=== PATIENT | male | born 1960 | race Caucasian/White ===

== ENCOUNTER 2019-12-09 01:54 | Inpatient (IN) | payer MEDICAID, OTHER ==
[~2019-12-09] VITALS: Ht 175.3 cm; Wt 51.3 kg
[~2019-12-09 01:54] MED LIST: ALBU18HF2 IH; ALBU90AE INH; ALIR75PE SQ; ATOR-2 PO; CHOL40002 MT; DARU1TAB MT; DOLU50TA PO; EMTR1TAB12 PO; GABA-531 MT; GABA-531 PO; LIP40 PO; LOPHC5 PO; PRAS10TA6 MT; PRAS10TA6 PO; PROC25SU2 RC; [UNRECOGNIZED DRUG - CODE] MT
[2019-12-09] MEDS ORDERED: ONDANSETRON HCL 4MG/2ML INJ IV STA (02:11)
[2019-12-09] MEDS ORDERED: CEFTRIAXONE 1 G PREMIX 50 ML IV ONE (02:15)
[2019-12-09] MEDS ORDERED: SODIUM CHLORIDE 0.9% 1000ML BAG (SEPSIS BOLUS) IV ONE (02:15)
[2019-12-09] MEDS ORDERED: AZITHROMYCIN 500 MG in DEXT 5% WATER 250 ML IV ONE (02:15)
[2019-12-09] MEDS ORDERED: PIPERACILLIN/TAZ 3.375G PREMIX 50 ML IV ONE (02:30)
[2019-12-09] MEDS ORDERED: ACYCLOVIR INJ 500 MG in DEXT 5% WATER 100 ML IV ONE (02:30)
[2019-12-09] MEDS ORDERED: VANCOMYCIN 1 G PREMIX 200 ML IV ONE (02:30)
[2019-12-09 02:31] LABS: HEMATOCRIT. 36.3 % (42.0-52.0); HEMOGLOBIN. 12.1 g/dL (14.0-18.0); MEAN CORPUSCULAR HEMOGLOBIN 33.4 pg (28.0-32.0); MEAN CORPUSCULAR VOLUME 99.8 fL (80.0-94.0); MEAN PLATELET VOLUME 8.5 fl (7.4-10.4); PLATELET 262 x1000/uL (130-400); RED BLOOD CELL COUNT 3.64 mill/uL (4.7-6.1); RED CELL DISTRIBUTION WIDTH 15.3 % (11.6-14.6)
[2019-12-09 02:42] LABS: CHLORIDE 95 mEq/L (98-107)
[2019-12-09 02:46] LABS: ETHANOL BLOOD 63 mg/dL
[2019-12-09 02:48] LABS: PLATELET ESTIMATE NORMAL
[2019-12-09 02:55] LABS: BG BASE EXCESS -13.1 mmol/L (-2.0-2.0); BG CARBOXYHEMOGLOBIN 1.1 % (0.5-1.5); BG FRACTION INSPIRED OXYGEN 21; BG HCO3 ACT 11.9 mmol/L (22.0-26.0); BG METHEMOGLOBIN 0.3 % (0.0-1.5); BG OXYGEN SATURATION 92.9 % (92.0-98.5); BG OXYHEMOGLOBIN 91.6 % (94.0-97.0); BG PCO2 25.4 mmHg (35.0-45.0); BG PH 7.287 (7.350-7.450); BG PO2 74.5 mmHg (75.0-100.0); BG SAMPLE SITE RIGHT RADIAL; BG TOTAL HEMOGLOBIN 12.2 g/dL (12.0-18.0); BG VENT MODE ROOM AIR
[2019-12-09] MEDS ORDERED: DEXTROSE 50% WATER 50ML SYRINGE IV NR (03:00)
[2019-12-09] MEDS ORDERED: ACETAMINOPHEN 650MG SUPP PR ONE (03:30)
[2019-12-09] MEDS ORDERED: ACETAMINOPHEN 325MG TABLET PO NR (03:30)
[2019-12-09 03:50] LABS: CLARITY URINE CLEAR (CLEAR); COLOR URINE YELLOW (YELLOW); KETONES URINE 3+ (NEGATIVE); LEUKOCYTE ESTERASE URINE NEGATIVE (NEGATIVE); NITRITE URINE NEGATIVE (NEGATIVE); OCCULT BLOOD URINE NEGATIVE (NEGATIVE); PROTEIN URINE 1+ (NEGATIVE); SPECIFIC GRAVITY URINE 1.013 (1.005-1.030)
[2019-12-09 04:09] LABS: CANNABINOID URINE SCREEN PRESUMTIVE POSITIVE (NEGATIVE); PHENCYCLIDINE URINE SCREEN NEGATIVE (NEGATIVE)
[2019-12-09 04:10] LABS: *AMPHETAMINES SCREEN URINE NEGATIVE (NEGATIVE); *BARBITURATES SCREEN URINE NEGATIVE (NEGATIVE); *BENZODIAZEPINES SCREEN URINE NEGATIVE (NEGATIVE); *COCAINE SCREEN URINE NEGATIVE (NEGATIVE); METHADONE URINE SCREEN NEGATIVE (NEGATIVE)
[2019-12-09 04:11] LABS: OPIATES URINE SCREEN NEGATIVE (NEGATIVE)
[2019-12-09] MEDS ORDERED: SODIUM CHLORIDE 0.9% 1,000 ML IV ONE (04:49)
[2019-12-09] MEDS ORDERED: NOREPINEPHRINE 4 MG in DEXT 5% WATER 250 ML IV STA (06:17)
[2019-12-09] MEDS ORDERED: NOREPINEPHRINE IV SCH (06:30)
[2019-12-09] MEDS ORDERED: NOREPINEPHRINE 4MG/250ML PMX IV ONE (06:45)
[2019-12-09] MEDS ORDERED: IPRATROPIUM/ALBUTEROL 0.5-3(2.5)MG/3ML NEB HHN SCH (12:00)
[2019-12-09] MEDS ORDERED: THIAMINE HCL 100MG TABLET PO NR (15:00)
[2019-12-09] MEDS ORDERED: FOLIC ACID 1MG TABLET PO NR (15:00)
[2019-12-09] MEDS ORDERED: AZITHROMYCIN 500 MG TABLET PO NR (15:00)
[2019-12-09] MEDS ORDERED: DEXTROSE 50% WATER 50ML SYRINGE IV ONE (15:16)
[2019-12-09] MEDS ORDERED: SODIUM BICARBONATE 8.4% 1 MEQ/ML 50ML SYR IV NR (15:39)
[2019-12-09] MEDS ORDERED: MAGNESIUM/ALUMINUM HYDROXIDE/SIMETHICONE 30ML UDC PO PRN (18:45)
[2019-12-09] MEDS ORDERED: ONDANSETRON HCL 4MG/2ML INJ IV PRN (18:45)
[2019-12-09] MEDS ORDERED: ACETAMINOPHEN 325MG TABLET PO PRN ×2 (18:45)
[2019-12-09] MEDS ORDERED: ZOLPIDEM TARTRATE 5MG TABLET PO PRN (18:45)
[2019-12-09] MEDS ORDERED: DIPHENHYDRAMINE 50MG/ML VIAL IV PRN (18:45)
[2019-12-09] MEDS ORDERED: GUAIFENESIN 600MG ER TABLET PO SCH (21:00)
[2019-12-09] MEDS ORDERED: NOREPINEPHRINE 16 MG in DEXT 5% WATER 234 ML IV PRN (23:30)
[2019-12-09 23:42] VITALS: BP 113/78
[2019-12-10] VITALS (43 sets, daily range): BP systolic 88–156; BP diastolic 35–96
[2019-12-10] MEDS: SODIUM CHLORIDE 0.9% 1,000 ML IV SCH (00:11)
[2019-12-10] MEDS: GUAIFENESIN 600MG ER TABLET PO SCH ×3 (00:32→20:14)
[2019-12-10] MEDS: NYSTATIN 100,000 UNITS/ML 5ML UDC SSW SCH ×4 (00:32→17:53)
[2019-12-10] MEDS: MULTIVITAMINS,THER W-MINERALS TABLET PO SCH ×2 (00:32→09:31)
[2019-12-10] MEDS: DAPSONE 100MG TABLET PO SCH ×2 (00:32→09:31)
[2019-12-10 05:52] LABS: HEMATOCRIT. 28.9 % (42.0-52.0); HEMOGLOBIN. 9.9 g/dL (14.0-18.0); MEAN CORPUSCULAR HEMOGLOBIN 33.8 pg (28.0-32.0); MEAN CORPUSCULAR VOLUME 98.9 fL (80.0-94.0); MEAN PLATELET VOLUME 8.6 fl (7.4-10.4); PLATELET 194 x1000/uL (130-400); RED BLOOD CELL COUNT 2.92 mill/uL (4.7-6.1); RED CELL DISTRIBUTION WIDTH 15.2 % (11.6-14.6)
[2019-12-10 05:56] LABS: CHLORIDE 99 mEq/L (98-107)
[2019-12-10 06:09] LABS: PHOSPHORUS 1.3 mg/dL (2.5-4.9)
[2019-12-10 08:12] LABS: PLATELET ESTIMATE NORMAL
[2019-12-10] MEDS: FAMOTIDINE 20MG/2ML VIAL IV SCH (09:31)
[2019-12-10] MEDS: AZITHROMYCIN 500 MG TABLET PO SCH (09:31)
[2019-12-10] MEDS: FOLIC ACID 1MG TABLET PO SCH (09:31)
[2019-12-10] MEDS: THIAMINE HCL 100MG TABLET PO SCH (09:31)
[2019-12-10] MEDS: FLUCONAZOLE 100MG TABLET PO SCH (09:32)
[2019-12-10] MEDS ORDERED: POTASSIUM CHLORIDE 20MEQ TABLET SR PO SCH (10:15)
[2019-12-10] MEDS ORDERED: MAGNESIUM 2 G PREMIX 50 ML IV SCH (11:00)
[2019-12-10] MEDS ORDERED: POTASSIUM PHOS,M-BASIC-D-BASIC 30 MMOL in DEXT 5% WATER 500 ML IV SCH (12:00)
[2019-12-10] MEDS: CEFTRIAXONE 1 G PREMIX 50 ML IV SCH (17:54)
[2019-12-11] MEDS: SODIUM CHLORIDE 0.9% 1,000 ML IV SCH
[2019-12-11 04:00] VITALS: BP 101/66
[2019-12-11] MEDS: NYSTATIN 100,000 UNITS/ML 5ML UDC SSW SCH ×4 (06:45→17:35)
[2019-12-11 08:00] VITALS: BP 99/60
[2019-12-11 09:06] LABS: ABSOLUTE EOSINOPHILS 0.1 x10E3/uL (0.0-0.4); ABSOLUTE LYMPHOCYTES 0.3 x10E3/uL (0.7-3.1); ABSOLUTE MONOCYTES 0.5 x10E3/uL (0.1-0.9); ABSOLUTE NEUTROPHILS 13.5 x10E3/uL (1.4-7.0); BASOPHILS 0 % (Not Estab.); HEMATOCRIT 30.2 % (37.5-51.0); HEMATOLOGY COMMENT Note: (.); HEMOGLOBIN 10.1 g/dL (13.0-17.7); IMMATURE GRANULOCYTES 1 % (Not Estab.); IMMATURE GRANULOCYTES ABSOLUTE 0.1 x10E3/uL (0.0-0.1); LYMPHOCYTES 2 % (Not Estab.); MEAN CORPUSCULAR HEMOGLOBIN 32.6 pg (26.6-33.0); MEAN CORPUSCULAR HGB CONC. 33.4 g/dL (31.5-35.7); MEAN CORPUSCULAR VOLUME 97 fL (79-97); MONOCYTES 3 % (Not Estab.); NEUTROPHILS 94 % (Not Estab.); PLATELETS 222 x10E3/uL (150-450); RED CELL DISTRIBUTION WIDTH 14.8 % (11.6-15.4); WBC 14.4 x10E3/uL (3.4-10.8)
[2019-12-11] MEDS: FAMOTIDINE 20MG/2ML VIAL IV SCH (09:38)
[2019-12-11] MEDS: FLUCONAZOLE 100MG TABLET PO SCH (09:39)
[2019-12-11] MEDS: GUAIFENESIN 600MG ER TABLET PO SCH ×2 (09:39→21:38)
[2019-12-11] MEDS: FOLIC ACID 1MG TABLET PO SCH (09:39)
[2019-12-11] MEDS: DAPSONE 100MG TABLET PO SCH (09:39)
[2019-12-11] MEDS: MULTIVITAMINS,THER W-MINERALS TABLET PO SCH (09:39)
[2019-12-11] MEDS: AZITHROMYCIN 500 MG TABLET PO SCH (09:39)
[2019-12-11] MEDS: THIAMINE HCL 100MG TABLET PO SCH (09:39)
[2019-12-11 10:08] LABS: % CD 3 POS. LYMPHOCYTES 76.2 % (57.5-86.2); % CD 4 POS. LYMPHOCYTES 0.7 % (30.8-58.5); % CD 8 POS. LYMPH 71.6 % (12.0-35.5); ABSOLUTE CD 3 229 /uL (622-2402); ABSOLUTE CD 4 HELPER 2 /uL (359-1519); ABSOLUTE CD 8 SUPPRESSOR 215 /uL (109-897); CD4/CD8 RATIO 0.01 (0.92-3.72)
[2019-12-11 12:00] VITALS: BP 101/71
[2019-12-11] MEDS ORDERED: MAGNESIUM 2 G PREMIX 50 ML IV ONE (16:45)
[2019-12-11] MEDS: CEFTRIAXONE 1 G PREMIX 50 ML IV SCH (17:35)
[2019-12-11 18:34] VITALS: BP 118/69
[2019-12-11 20:00] VITALS: BP 111/72
[2019-12-12] VITALS: BP 94/58
[2019-12-12] MEDS: NYSTATIN 100,000 UNITS/ML 5ML UDC SSW SCH ×5 (00:10→23:46)
[2019-12-12 04:00] VITALS: BP 102/69
[2019-12-12 07:14] LABS: HEMATOCRIT. 30.4 % (42.0-52.0); HEMOGLOBIN. 10.2 g/dL (14.0-18.0); MEAN CORPUSCULAR HEMOGLOBIN 33.3 pg (28.0-32.0); PLATELET 233 x1000/uL (130-400); RED BLOOD CELL COUNT 3.07 mill/uL (4.7-6.1); RED CELL DISTRIBUTION WIDTH 15.7 % (11.6-14.6)
[2019-12-12 07:26] LABS: CHLORIDE 102 mEq/L (98-107)
[2019-12-12 08:00] VITALS: BP 109/61
[2019-12-12 08:22] LABS: HEPATITIS B SURFACE ANTIGEN NEGATIVE
[2019-12-12] MEDS: FLUCONAZOLE 100MG TABLET PO SCH (08:36)
[2019-12-12] MEDS: FAMOTIDINE 20MG/2ML VIAL IV SCH (08:36)
[2019-12-12] MEDS: DAPSONE 100MG TABLET PO SCH (08:36)
[2019-12-12] MEDS: AZITHROMYCIN 500 MG TABLET PO SCH (08:36)
[2019-12-12] MEDS: FOLIC ACID 1MG TABLET PO SCH (08:36)
[2019-12-12] MEDS: MULTIVITAMINS,THER W-MINERALS TABLET PO SCH (08:36)
[2019-12-12] MEDS: GUAIFENESIN 600MG ER TABLET PO SCH ×2 (08:36→21:19)
[2019-12-12] MEDS: THIAMINE HCL 100MG TABLET PO SCH (08:36)
[2019-12-12 12:00] VITALS: BP 107/77
[2019-12-12] MEDS: BENZONATATE 100MG CAPSULE PO SCH ×2 (13:41→21:19)
[2019-12-12 16:00] VITALS: BP 102/67
[2019-12-12] MEDS: CEFTRIAXONE 1 G PREMIX 50 ML IV SCH (17:06)
[2019-12-12 20:00] VITALS: BP 104/64
[2019-12-12] MEDS: SODIUM CHLORIDE 0.9% 1,000 ML IV SCH (23:46)
[2019-12-13] VITALS: BP 116/75
[2019-12-13 04:00] VITALS: BP 95/65
[2019-12-13] MEDS: NYSTATIN 100,000 UNITS/ML 5ML UDC SSW SCH ×3 (05:16→17:00)
[2019-12-13] MEDS: BENZONATATE 100MG CAPSULE PO SCH ×3 (05:16→21:59)
[2019-12-13 05:26] LABS: PLATELET ESTIMATE NORMAL
[2019-12-13 08:00] VITALS: BP 95/64
[2019-12-13] MEDS: FLUCONAZOLE 100MG TABLET PO SCH (08:14)
[2019-12-13] MEDS: THIAMINE HCL 100MG TABLET PO SCH (08:14)
[2019-12-13] MEDS: FAMOTIDINE 20MG/2ML VIAL IV SCH (08:14)
[2019-12-13] MEDS: FOLIC ACID 1MG TABLET PO SCH (08:14)
[2019-12-13] MEDS: AZITHROMYCIN 500 MG TABLET PO SCH (08:14)
[2019-12-13] MEDS: GUAIFENESIN 600MG ER TABLET PO SCH ×2 (08:14→21:59)
[2019-12-13] MEDS: MULTIVITAMINS,THER W-MINERALS TABLET PO SCH (08:14)
[2019-12-13] MEDS: DAPSONE 100MG TABLET PO SCH (08:14)
[2019-12-13 12:00] VITALS: BP 99/70
[2019-12-13 16:00] VITALS: BP 100/63
[2019-12-13] MEDS: CEFTRIAXONE 1 G PREMIX 50 ML IV SCH (16:57)
[2019-12-13 20:00] VITALS: BP 92/69
[2019-12-14] VITALS: BP 116/69
[2019-12-14] MEDS: SODIUM CHLORIDE 0.9% 1,000 ML IV SCH
[2019-12-14] MEDS: NYSTATIN 100,000 UNITS/ML 5ML UDC SSW SCH ×5 (00:22→23:36)
[2019-12-14 04:00] VITALS: BP 108/75
[2019-12-14] MEDS: BENZONATATE 100MG CAPSULE PO SCH ×3 (05:40→21:23)
[2019-12-14 08:00] VITALS: BP 83/63
[2019-12-14] MEDS: MULTIVITAMINS,THER W-MINERALS TABLET PO SCH (09:46)
[2019-12-14] MEDS: DAPSONE 100MG TABLET PO SCH (09:46)
[2019-12-14] MEDS: FAMOTIDINE 20MG/2ML VIAL IV SCH (09:46)
[2019-12-14] MEDS: THIAMINE HCL 100MG TABLET PO SCH (09:46)
[2019-12-14] MEDS: FLUCONAZOLE 100MG TABLET PO SCH (09:46)
[2019-12-14] MEDS: GUAIFENESIN 600MG ER TABLET PO SCH ×2 (09:46→21:23)
[2019-12-14] MEDS: AZITHROMYCIN 500 MG TABLET PO SCH (09:49)
[2019-12-14] MEDS: FOLIC ACID 1MG TABLET PO SCH (09:49)
[2019-12-14 10:10] LABS: COVID-19 PCR RNA NOT DETECTED
[2019-12-14 12:00] VITALS: BP 92/64
[2019-12-14 16:00] VITALS: BP 108/68
[2019-12-14] MEDS: CEFTRIAXONE 1 G PREMIX 50 ML IV SCH (17:06)
[2019-12-14 20:00] VITALS: BP_SYST 125; BP_SYST 91; BP_DIAS 54; BP_DIAS 84
[2019-12-15] VITALS: BP 91/62
[2019-12-15 04:00] VITALS: BP 104/65
[2019-12-15] MEDS: NYSTATIN 100,000 UNITS/ML 5ML UDC SSW SCH ×3 (05:07→17:31)
[2019-12-15] MEDS: BENZONATATE 100MG CAPSULE PO SCH ×3 (05:07→21:44)
[2019-12-15 08:00] VITALS: BP 107/69
[2019-12-15] MEDS: IPRATROPIUM/ALBUTEROL 0.5-3(2.5)MG/3ML NEB HHN SCH ×2 (08:00→21:33)
[2019-12-15] MEDS: FLUCONAZOLE 100MG TABLET PO SCH (09:20)
[2019-12-15] MEDS: FOLIC ACID 1MG TABLET PO SCH (09:20)
[2019-12-15] MEDS: THIAMINE HCL 100MG TABLET PO SCH (09:20)
[2019-12-15] MEDS: AZITHROMYCIN 500 MG TABLET PO SCH (09:20)
[2019-12-15] MEDS: MULTIVITAMINS,THER W-MINERALS TABLET PO SCH (09:20)
[2019-12-15] MEDS: FAMOTIDINE 20MG/2ML VIAL IV SCH (09:20)
[2019-12-15] MEDS: GUAIFENESIN 600MG ER TABLET PO SCH ×2 (09:20→21:44)
[2019-12-15 12:00] VITALS: BP 99/61
[2019-12-15] MEDS: DAPSONE 100MG TABLET PO SCH (13:42)
[2019-12-15 16:00] VITALS: BP 117/68
[2019-12-15] MEDS: CEFTRIAXONE 1 G PREMIX 50 ML IV SCH (17:31)
[2019-12-15 20:00] VITALS: BP 95/57
[2019-12-16] VITALS: BP 93/59
[2019-12-16] MEDS: NYSTATIN 100,000 UNITS/ML 5ML UDC SSW SCH ×4 (01:49→11:52)
[2019-12-16] MEDS: IPRATROPIUM/ALBUTEROL 0.5-3(2.5)MG/3ML NEB HHN SCH ×3 (02:43→13:41)
[2019-12-16 04:00] VITALS: BP 84/49
[2019-12-16 04:05] VITALS: BP 101/62
[2019-12-16] MEDS: BENZONATATE 100MG CAPSULE PO SCH ×4 (05:08→14:22)
[2019-12-16 08:00] VITALS: BP 88/63
[2019-12-16] MEDS: FOLIC ACID 1MG TABLET PO SCH (08:22)
[2019-12-16] MEDS: THIAMINE HCL 100MG TABLET PO SCH (08:22)
[2019-12-16] MEDS: DAPSONE 100MG TABLET PO SCH (08:22)
[2019-12-16] MEDS: MULTIVITAMINS,THER W-MINERALS TABLET PO SCH (08:22)
[2019-12-16] MEDS: GUAIFENESIN 600MG ER TABLET PO SCH (08:22)
[2019-12-16] MEDS: FLUCONAZOLE 100MG TABLET PO SCH (08:22)
[2019-12-16 12:00] VITALS: BP 85/48
[2019-12-16 15:12] VITALS: BP 88/63
== END 2019-12-16 16:21 | disposition home or self-care (01) | DRG 890 ==
LOC: ER 02:33 → MICUSO 04:39 → EDBEDREQ 04:44 → EDBEDREQTM 04:44 → EDBEDREQSVC 06:10 → ENRESERV 21:55 → 7EST 12-10 23:58 → 6EST 12-14 19:54
PROVIDERS: ADMIT Internal Medicine; ATTEND Internal Medicine
DX: A41.9 Sepsis, unspecified organism (principal); B20 Human immunodeficiency virus [HIV] disease; J96.01 Acute respiratory failure with hypoxia; R65.21 Severe sepsis with septic shock; E43 Unspecified severe protein-calorie malnutrition; J15.6 Pneumonia due to other Gram-negative bacteria; B37.0 Candidal stomatitis; E83.39 Other disorders of phosphorus metabolism; E83.42 Hypomagnesemia; B15.9 Hepatitis A without hepatic coma; D64.9 Anemia, unspecified; E16.2 Hypoglycemia, unspecified; E87.6 Hypokalemia; F17.210 Nicotine dependence, cigarettes, uncomplicated; F10.10 Alcohol abuse, uncomplicated; J44.0 Chronic obstructive pulmonary disease with (acute) lower respiratory infection; Y90.3 Blood alcohol level of 60-79 mg/100 ml; J44.1 Chronic obstructive pulmonary disease with (acute) exacerbation; F32.9 Major depressive disorder, single episode, unspecified; I25.10 Atherosclerotic heart disease of native coronary artery without angina pectoris; R74.0 Nonspecific elevation of levels of transaminase and lactic acid dehydrogenase [LDH]; Z88.2 Allergy status to sulfonamides; Z95.5 Presence of coronary angioplasty implant and graft; Z88.8 Allergy status to other drugs, medicaments and biological substances; I25.2 Old myocardial infarction; Z68.1 Body mass index [BMI] 19.9 or less, adult
CPT/HCPCS: 36415; 36600; 71045; 80048; 80053; 80305; 80320; 81003; 82375; 82805; 82962; 83605; 83735; 84100; 84145; 84484; 85025; 86359; 86360; 86803; 87070; 87077; 87186; 87340; 87420; 87804; 93005; 94640; 96365; 96375; 96376; 99291; J0133; J0456; J0696; J2405; J2543; J3370; J3475; J3490; J7030; J7060; G0480

== ENCOUNTER 2020-05-24 19:33 | Inpatient (IN) | payer MEDICAID ==
[~2020-05-24] VITALS: Ht 180.3 cm; Wt 59.9 kg
[2020-05-24] MEDS ORDERED: DEXTROSE 50% WATER 50ML SYRINGE IV ONE (20:15)
[2020-05-24] MEDS ORDERED: DEXT 5%/0.45% NACL 1000ML 1,000 ML IV ONE (20:45)
[2020-05-24] MEDS ORDERED: AZITHROMYCIN 500 MG in DEXT 5% WATER 250 ML IV SCH (20:45)
[2020-05-24] MEDS ORDERED: VANCOMYCIN 1 G PREMIX 200 ML IV SCH (20:45)
[2020-05-24] MEDS ORDERED: PIPERACILLIN/TAZOBACTAM 3.375GM/50ML PREMIX IV ONE (20:45)
[2020-05-24] MEDS ORDERED: PIPERACILLIN/TAZ 3.375G PREMIX 50 ML IV NR (20:45)
[2020-05-24 21:39] LABS: HEMATOCRIT. 34.8 % (42.0-52.0); HEMOGLOBIN. 11.6 g/dL (14.0-18.0); MEAN CORPUSCULAR HEMOGLOBIN 33.1 pg (28.0-32.0); MEAN CORPUSCULAR VOLUME 99.3 fL (80.0-94.0); PLATELET 117 x1000/uL (130-400); RED BLOOD CELL COUNT 3.51 mill/uL (4.7-6.1); RED CELL DISTRIBUTION WIDTH 14.8 % (11.6-14.6)
[2020-05-24 21:45] LABS: CHLORIDE 102 mEq/L (98-107)
[2020-05-24 21:49] LABS: ETHANOL BLOOD 46 mg/dL
[2020-05-24 22:50] LABS: ATYPICAL LYMPHOCYTES 1; PLATELET ESTIMATE SLIGHTLY DECREASED
[2020-05-24 23:51] LABS: INR 1.1; PROTHROMBIN TIME 11.5 sec (9.6-11.0)
[2020-05-25] VITALS (7 sets, daily range): BP systolic 89–108; BP diastolic 44–66
[2020-05-25] MEDS ORDERED: ONDANSETRON HCL 4MG/2ML INJ IV PRN (05:15)
[2020-05-25] MEDS: PANTOPRAZOLE 40MG DR TABLET PO SCH (09:01)
[2020-05-25] MEDS ORDERED: INSULIN GLARGINE UD 100 UNITS/ML SYR SUBCUT SCH (10:00)
[2020-05-25] MEDS ORDERED: DEXTROSE 50% WATER 50ML SYRINGE IV PRN (10:00)
[2020-05-25] MEDS ORDERED: ACETAMINOPHEN 325MG TABLET PO PRN ×2 (10:00→10:15)
[2020-05-25] MEDS ORDERED: BLOOD SUGAR DIAGNOSTIC STRIP TEST SCH (12:40)
[2020-05-25] MEDS ORDERED: INSULIN LISPRO 100 UNITS/ML SUBCUT SCH (13:10)
[2020-05-25 13:23] LABS: HEMATOCRIT. 27.7 % (42.0-52.0); HEMOGLOBIN. 9.7 g/dL (14.0-18.0); MEAN CORPUSCULAR VOLUME 97.1 fL (80.0-94.0); MEAN PLATELET VOLUME 8.9 fl (7.4-10.4); PLATELET 114 x1000/uL (130-400); RED BLOOD CELL COUNT 2.85 mill/uL (4.7-6.1); RED CELL DISTRIBUTION WIDTH 14.4 % (11.6-14.6)
[2020-05-25 13:47] LABS: PLATELET ESTIMATE SLIGHTLY DECREASED
[2020-05-25] MEDS ORDERED: ALBUTEROL 6.7GM HFA INHALER ORI SCH (15:15)
[2020-05-25] MEDS ORDERED: CEFTRIAXONE 1 G PREMIX 50 ML IV SCH (17:15)
[2020-05-25] MEDS: BLOOD SUGAR DIAGNOSTIC STRIP TEST SCH ×2 (17:40→21:00)
[2020-05-25] MEDS: INSULIN LISPRO 100 UNITS/ML SUBCUT SCH ×2 (17:44→21:00)
[2020-05-25] MEDS: ATOVAQUONE 750 MG/5 ML ORAL.SUSP PO SCH (17:49)
[2020-05-25] MEDS ORDERED: IPRATROPIUM/ALBUTEROL 0.5-3(2.5)MG/3ML NEB HHN SCH (18:00)
[2020-05-25 18:22] LABS: CLARITY URINE CLOUDY (CLEAR); COLOR URINE DARK YELLOW (YELLOW); KETONES URINE TRACE (NEGATIVE); LEUKOCYTE ESTERASE URINE TRACE (NEGATIVE); NITRITE URINE NEGATIVE (NEGATIVE); OCCULT BLOOD URINE NEGATIVE (NEGATIVE); PH URINE 5.5 (4.5-8.0); PROTEIN URINE 1+ (NEGATIVE)
[2020-05-25 18:33] LABS: *AMPHETAMINES SCREEN URINE NEGATIVE (NEGATIVE); *BARBITURATES SCREEN URINE NEGATIVE (NEGATIVE); *BENZODIAZEPINES SCREEN URINE NEGATIVE (NEGATIVE); *COCAINE SCREEN URINE NEGATIVE (NEGATIVE)
[2020-05-25 18:34] LABS: CANNABINOID URINE SCREEN PRESUMTIVE POSITIVE (NEGATIVE); METHADONE URINE SCREEN NEGATIVE (NEGATIVE); OPIATES URINE SCREEN NEGATIVE (NEGATIVE); PHENCYCLIDINE URINE SCREEN NEGATIVE (NEGATIVE)
[2020-05-25] MEDS: CEFTRIAXONE 1,000 MG in DEXTROSE 5% WATER 50 ML IV SCH (18:58)
[2020-05-25] MEDS: GUAIFENESIN 600MG ER TABLET PO SCH (20:48)
[2020-05-25] MEDS: ALBUTEROL 6.7GM HFA INHALER ORI SCH (22:15)
[2020-05-26] VITALS: BP 90/67
[2020-05-26] MEDS: ALBUTEROL 6.7GM HFA INHALER ORI SCH ×4 (02:57→20:50)
[2020-05-26 04:00] VITALS: BP 106/42
[2020-05-26 05:42] LABS: CHLORIDE 102 mEq/L (98-107)
[2020-05-26 06:25] LABS: HEMATOCRIT. 30.5 % (42.0-52.0); HEMOGLOBIN. 10.6 g/dL (14.0-18.0); MEAN CORPUSCULAR HEMOGLOBIN 33.7 pg (28.0-32.0); MEAN CORPUSCULAR VOLUME 97.5 fL (80.0-94.0); MEAN PLATELET VOLUME 9.4 fl (7.4-10.4); PLATELET 124 x1000/uL (130-400); RED BLOOD CELL COUNT 3.13 mill/uL (4.7-6.1); RED CELL DISTRIBUTION WIDTH 14.6 % (11.6-14.6)
[2020-05-26] MEDS: BLOOD SUGAR DIAGNOSTIC STRIP TEST SCH ×4 (06:29→20:27)
[2020-05-26] MEDS: INSULIN LISPRO 100 UNITS/ML SUBCUT SCH ×4 (07:20→20:44)
[2020-05-26 08:00] VITALS: BP 89/44
[2020-05-26] MEDS: GUAIFENESIN 600MG ER TABLET PO SCH ×2 (08:21→20:26)
[2020-05-26] MEDS: PANTOPRAZOLE 40MG DR TABLET PO SCH (08:21)
[2020-05-26] MEDS: AZITHROMYCIN 500 MG TABLET PO SCH (08:21)
[2020-05-26] MEDS: ATOVAQUONE 750 MG/5 ML ORAL.SUSP PO SCH (08:22)
[2020-05-26 09:06] LABS: ABSOLUTE EOSINOPHILS 0.1 x10E3/uL (0.0-0.4); ABSOLUTE LYMPHOCYTES 0.2 x10E3/uL (0.7-3.1); ABSOLUTE MONOCYTES 0.2 x10E3/uL (0.1-0.9); ABSOLUTE NEUTROPHILS 3.8 x10E3/uL (1.4-7.0); BASOPHILS 0 % (Not Estab.); HEMATOCRIT 26.3 % (37.5-51.0); HEMOGLOBIN 9.3 g/dL (13.0-17.7); IMMATURE GRANULOCYTES 1 % (Not Estab.); LYMPHOCYTES 5 % (Not Estab.); MEAN CORPUSCULAR HEMOGLOBIN 32.2 pg (26.6-33.0); MEAN CORPUSCULAR HGB CONC. 35.4 g/dL (31.5-35.7); MEAN CORPUSCULAR VOLUME 91 fL (79-97); MONOCYTES 5 % (Not Estab.); NEUTROPHILS 87 % (Not Estab.); PLATELETS 126 x10E3/uL (150-450); RBC 2.89 x10E6/uL (4.14-5.80); RED CELL DISTRIBUTION WIDTH 13.4 % (11.6-15.4); WBC 4.4 x10E3/uL (3.4-10.8)
[2020-05-26] MEDS: FLUCONAZOLE 100MG TABLET PO SCH (10:33)
[2020-05-26 11:42] LABS: NUCLEATED RED BLOOD CELLS 1 /100 WBC
[2020-05-26 11:43] LABS: PLATELET ESTIMATE SLIGHTLY DECREASED
[2020-05-26] MEDS: DEXTROSE 50% WATER 50ML SYRINGE IV PRN ×2 (11:58→16:53)
[2020-05-26 12:00] VITALS: BP 95/65
[2020-05-26] MEDS ORDERED: POTASSIUM CHLORIDE 20MEQ TABLET SR PO NR (12:30)
[2020-05-26] MEDS: MIDODRINE HCL 2.5MG TABLET PO SCH ×2 (12:46→16:55)
[2020-05-26] MEDS: NYSTATIN 100,000 UNITS/ML 5ML UDC SSW SCH ×3 (12:46→23:07)
[2020-05-26 16:00] VITALS: BP 83/39
[2020-05-26] MEDS: ATOVAQUONE 750MG/5ML PACKET PO SCH (18:07)
[2020-05-26] MEDS: CEFTRIAXONE 1,000 MG in DEXTROSE 5% WATER 50 ML IV SCH (18:07)
[2020-05-26 20:00] VITALS: BP 92/50
[2020-05-27] VITALS: BP 98/55
[2020-05-27] MEDS: ALBUTEROL 6.7GM HFA INHALER ORI SCH (01:32)
[2020-05-27 04:00] VITALS: BP 102/60
[2020-05-27] MEDS: NYSTATIN 100,000 UNITS/ML 5ML UDC SSW SCH ×3 (05:41→17:58)
[2020-05-27] MEDS: BLOOD SUGAR DIAGNOSTIC STRIP TEST SCH ×4 (05:53→21:07)
[2020-05-27 05:57] LABS: HEMATOCRIT. 28.9 % (42.0-52.0); HEMOGLOBIN. 9.9 g/dL (14.0-18.0); MEAN CORPUSCULAR HEMOGLOBIN 33.7 pg (28.0-32.0); MEAN CORPUSCULAR VOLUME 97.8 fL (80.0-94.0); MEAN PLATELET VOLUME 10.4 fl (7.4-10.4); PLATELET 116 x1000/uL (130-400); RED BLOOD CELL COUNT 2.95 mill/uL (4.7-6.1); RED CELL DISTRIBUTION WIDTH 14.9 % (11.6-14.6)
[2020-05-27 06:04] LABS: CHLORIDE 104 mEq/L (98-107)
[2020-05-27] MEDS: INSULIN LISPRO 100 UNITS/ML SUBCUT SCH ×4 (07:42→21:00)
[2020-05-27] MEDS: FAMOTIDINE 20MG TABLET PO SCH (07:54)
[2020-05-27] MEDS: ATOVAQUONE 750MG/5ML PACKET PO SCH (07:56)
[2020-05-27 08:00] VITALS: BP 85/49
[2020-05-27] MEDS: MIDODRINE HCL 2.5MG TABLET PO SCH (09:20)
[2020-05-27] MEDS: AZITHROMYCIN 500 MG TABLET PO SCH (09:20)
[2020-05-27] MEDS: GUAIFENESIN 600MG ER TABLET PO SCH ×2 (09:20→21:34)
[2020-05-27] MEDS: FLUCONAZOLE 100MG TABLET PO SCH (09:20)
[2020-05-27] MEDS ORDERED: IPRATROPIUM/ALBUTEROL 0.5-3(2.5)MG/3ML NEB HHN PRN (11:30)
[2020-05-27 12:00] VITALS: BP 122/90
[2020-05-27] MEDS: MIDODRINE HCL 5MG TABLET PO SCH ×2 (12:12→17:58)
[2020-05-27] MEDS: DEXTROSE 50% WATER 50ML SYRINGE IV PRN ×2 (12:12→13:21)
[2020-05-27 12:33] LABS: PLATELET ESTIMATE DECREASED
[2020-05-27] MEDS ORDERED: GLUCAGON,HUMAN RECOMBINANT 1MG/VIAL IM NR (13:45)
[2020-05-27 16:00] VITALS: BP 110/77
[2020-05-27] MEDS: ALBUTEROL (0.083%) 2.5MG/3ML NEB HHN SCH ×2 (16:14→21:36)
[2020-05-27] MEDS ORDERED: ATOVAQUONE 750 MG/5 ML ORAL.SUSP PO SCH (17:15)
[2020-05-27] MEDS: AMOXICILLIN/POTASSIUM CLAVULANATE 875/125MG TAB PO SCH (17:59)
[2020-05-27] MEDS: ATOVAQUONE 750MG/5ML ORAL SYRINGE PO SCH (17:59)
[2020-05-27 20:00] VITALS: BP 105/55
[2020-05-28] VITALS: BP 95/66
[2020-05-28] MEDS: NYSTATIN 100,000 UNITS/ML 5ML UDC SSW SCH ×5 (01:15→23:52)
[2020-05-28 04:00] VITALS: BP 88/44
[2020-05-28] MEDS: ALBUTEROL (0.083%) 2.5MG/3ML NEB HHN SCH ×4 (04:02→19:53)
[2020-05-28 05:29] LABS: BASOPHILS % 0.5 % (0.0-2.0); EOSINOPHILS % 1.5 % (0.0-5.0); HEMATOCRIT. 31.7 % (42.0-52.0); HEMOGLOBIN. 10.8 g/dL (14.0-18.0); LYMPHOCYTES % 11.4 % (20.0-50.0); MEAN CORPUSCULAR HEMOGLOBIN 33.6 pg (28.0-32.0); MEAN CORPUSCULAR VOLUME 98.7 fL (80.0-94.0); MEAN PLATELET VOLUME 9.9 fl (7.4-10.4); MONOCYTES % 10.9 % (2.0-8.0); NEUTROPHILS % 75.7 % (40.0-76.0); PLATELET 133 x1000/uL (130-400); RED BLOOD CELL COUNT 3.21 mill/uL (4.7-6.1); RED CELL DISTRIBUTION WIDTH 14.5 % (11.6-14.6)
[2020-05-28 05:36] LABS: CHLORIDE 100 mEq/L (98-107)
[2020-05-28] MEDS: BLOOD SUGAR DIAGNOSTIC STRIP TEST SCH ×4 (06:03→21:50)
[2020-05-28] MEDS: FAMOTIDINE 20MG TABLET PO SCH (06:03)
[2020-05-28] MEDS: AMOXICILLIN/POTASSIUM CLAVULANATE 875/125MG TAB PO SCH ×2 (06:03→18:57)
[2020-05-28] MEDS: INSULIN LISPRO 100 UNITS/ML SUBCUT SCH ×4 (06:15→21:00)
[2020-05-28 08:00] VITALS: BP 95/64
[2020-05-28] MEDS: DEXTROSE 50% WATER 50ML SYRINGE IV PRN ×4 (08:02→15:43)
[2020-05-28] MEDS: ATOVAQUONE 750MG/5ML ORAL SYRINGE PO SCH ×2 (08:21→17:38)
[2020-05-28] MEDS: MIDODRINE HCL 5MG TABLET PO SCH ×3 (08:29→17:38)
[2020-05-28] MEDS: GUAIFENESIN 600MG ER TABLET PO SCH ×2 (08:29→21:53)
[2020-05-28] MEDS: AZITHROMYCIN 500 MG TABLET PO SCH (08:30)
[2020-05-28] MEDS: FLUCONAZOLE 100MG TABLET PO SCH (08:30)
[2020-05-28 12:00] VITALS: BP 130/76
[2020-05-28 16:00] VITALS: BP 97/49
[2020-05-28] MEDS ORDERED: DEXT 10% WATER 1,000 ML IV SCH (17:15)
[2020-05-28 20:00] VITALS: BP 145/82
[2020-05-29] VITALS: BP 105/80
[2020-05-29] MEDS: ALBUTEROL (0.083%) 2.5MG/3ML NEB HHN SCH ×4 (01:34→20:58)
[2020-05-29 04:00] VITALS: BP 95/51
[2020-05-29] MEDS: INSULIN LISPRO 100 UNITS/ML SUBCUT SCH ×4 (06:45→21:00)
[2020-05-29] MEDS: BLOOD SUGAR DIAGNOSTIC STRIP TEST SCH ×4 (06:45→21:37)
[2020-05-29] MEDS: NYSTATIN 100,000 UNITS/ML 5ML UDC SSW SCH ×3 (06:49→17:27)
[2020-05-29] MEDS: FAMOTIDINE 20MG TABLET PO SCH (06:49)
[2020-05-29] MEDS: AMOXICILLIN/POTASSIUM CLAVULANATE 875/125MG TAB PO SCH ×2 (06:49→17:27)
[2020-05-29] MEDS: ATOVAQUONE 750MG/5ML ORAL SYRINGE PO SCH ×2 (06:49→17:27)
[2020-05-29 07:31] LABS: BASOPHILS % 0.7 % (0.0-2.0); EOSINOPHILS % 1.1 % (0.0-5.0); HEMATOCRIT. 29.2 % (42.0-52.0); LYMPHOCYTES % 8.9 % (20.0-50.0); MEAN CORPUSCULAR HEMOGLOBIN 33.6 pg (28.0-32.0); MEAN CORPUSCULAR VOLUME 98.2 fL (80.0-94.0); MEAN PLATELET VOLUME 9.3 fl (7.4-10.4); MONOCYTES % 12.1 % (2.0-8.0); NEUTROPHILS % 77.2 % (40.0-76.0); PLATELET 177 x1000/uL (130-400); RED BLOOD CELL COUNT 2.98 mill/uL (4.7-6.1)
[2020-05-29 07:45] LABS: CHLORIDE 99 mEq/L (98-107)
[2020-05-29 08:00] VITALS: BP 97/68
[2020-05-29] MEDS: FLUCONAZOLE 100MG TABLET PO SCH (08:51)
[2020-05-29] MEDS: GUAIFENESIN 600MG ER TABLET PO SCH ×2 (08:51→21:11)
[2020-05-29] MEDS: AZITHROMYCIN 500 MG TABLET PO SCH (08:52)
[2020-05-29] MEDS: MIDODRINE HCL 5MG TABLET PO SCH ×3 (08:53→17:27)
[2020-05-29 12:00] VITALS: BP 87/59
[2020-05-29] MEDS ORDERED: GLUCAGON,HUMAN RECOMBINANT 1MG/VIAL IM PRN (13:00)
[2020-05-29 16:00] VITALS: BP 100/63
[2020-05-29 20:00] VITALS: BP 96/80
[2020-05-30] VITALS: BP 101/75
[2020-05-30] MEDS: NYSTATIN 100,000 UNITS/ML 5ML UDC SSW SCH ×3 (01:52→13:55)
[2020-05-30] MEDS: ALBUTEROL (0.083%) 2.5MG/3ML NEB HHN SCH ×3 (01:52→13:25)
[2020-05-30 04:00] VITALS: BP 110/74
[2020-05-30] MEDS: AMOXICILLIN/POTASSIUM CLAVULANATE 875/125MG TAB PO SCH (06:09)
[2020-05-30] MEDS: FAMOTIDINE 20MG TABLET PO SCH (06:09)
[2020-05-30] MEDS: ATOVAQUONE 750MG/5ML ORAL SYRINGE PO SCH (06:09)
[2020-05-30] MEDS: BLOOD SUGAR DIAGNOSTIC STRIP TEST SCH ×2 (06:13→11:45)
[2020-05-30] MEDS ORDERED: GLUCAGON,HUMAN RECOMBINANT 1MG/VIAL IM NR (06:37)
[2020-05-30] MEDS: INSULIN LISPRO 100 UNITS/ML SUBCUT SCH ×2 (06:56→12:15)
[2020-05-30 07:22] LABS: CHLORIDE 101 mEq/L (98-107)
[2020-05-30 08:00] VITALS: BP 65/48
[2020-05-30] MEDS: MIDODRINE HCL 5MG TABLET PO SCH ×2 (09:43→13:55)
[2020-05-30] MEDS: AZITHROMYCIN 500 MG TABLET PO SCH (09:43)
[2020-05-30] MEDS: GUAIFENESIN 600MG ER TABLET PO SCH (09:43)
[2020-05-30] MEDS: FLUCONAZOLE 100MG TABLET PO SCH (09:43)
[2020-05-30 10:10] LABS: % CD 3 POS. LYMPHOCYTES 63.9 % (57.5-86.2); % CD 4 POS. LYMPHOCYTES 2.2 % (30.8-58.5); % CD 8 POS. LYMPH 55.5 % (12.0-35.5); CD4/CD8 RATIO 0.04 (0.92-3.72)
[2020-05-30] MEDS ORDERED: MIDO5TAB4 PO (11:21)
[2020-05-30] MEDS ORDERED: ATOV750O PO (11:21)
[2020-05-30] MEDS ORDERED: AZIT500T8 PO (11:21)
[2020-05-30 12:00] VITALS: BP 88/66
[2020-05-30] MEDS ORDERED: ACETYLCYSTEINE 100MG/ML 10% VIAL 4ML INH SCH (14:00)
[2020-05-30] MEDS ORDERED: FLUDROCORTISONE ACETATE 0.1MG TABLET PO SCH (15:00)
[2020-05-30 15:10] LABS: ABSOLUTE CD 3 192 /uL (622-2402); ABSOLUTE CD 4 HELPER 7 /uL (359-1519); ABSOLUTE CD 8 SUPPRESSOR 167 /uL (109-897); ABSOLUTE LYMPHOCYTES 0.3 x10E3/uL (0.7-3.1); ABSOLUTE MONOCYTES 0.2 x10E3/uL (0.1-0.9); BASOPHILS 0 % (Not Estab.); HEMATOCRIT 29.5 % (37.5-51.0); HEMATOLOGY COMMENT Note: (.); HEMOGLOBIN 10.4 g/dL (13.0-17.7); IMMATURE GRANULOCYTES 0 % (Not Estab.); LYMPHOCYTES 12 % (Not Estab.); MEAN CORPUSCULAR HEMOGLOBIN 32.7 pg (26.6-33.0); MEAN CORPUSCULAR HGB CONC. 35.3 g/dL (31.5-35.7); MEAN CORPUSCULAR VOLUME 93 fL (79-97); MONOCYTES 8 % (Not Estab.); NEUTROPHILS 79 % (Not Estab.); PLATELETS 143 x10E3/uL (150-450); RBC 3.18 x10E6/uL (4.14-5.80); RED CELL DISTRIBUTION WIDTH 13.2 % (11.6-15.4); WBC 2.6 x10E3/uL (3.4-10.8)
[2020-05-30] MEDS ORDERED: FLOR MT (15:17)
[2020-05-30 16:45] VITALS: BP 18/88
== END 2020-05-30 18:30 | disposition home or self-care (01) | DRG 890 ==
LOC: ER 19:33 → 7WST 22:45 → ENRESERV 23:46 → 5WST 05-27 13:06
PROVIDERS: ADMIT Internal Medicine; ATTEND Internal Medicine
DX: A41.9 Sepsis, unspecified organism (principal); J96.01 Acute respiratory failure with hypoxia; E43 Unspecified severe protein-calorie malnutrition; E16.2 Hypoglycemia, unspecified; E86.0 Dehydration; E87.6 Hypokalemia; F10.129 Alcohol abuse with intoxication, unspecified; F12.90 Cannabis use, unspecified, uncomplicated; F17.210 Nicotine dependence, cigarettes, uncomplicated; F32.9 Major depressive disorder, single episode, unspecified; J18.9 Pneumonia, unspecified organism; J44.0 Chronic obstructive pulmonary disease with (acute) lower respiratory infection; R17 Unspecified jaundice; Y90.2 Blood alcohol level of 40-59 mg/100 ml; Z20.828 Contact with and (suspected) exposure to other viral communicable diseases; I25.10 Atherosclerotic heart disease of native coronary artery without angina pectoris; B20 Human immunodeficiency virus [HIV] disease; E87.2 Acidosis; Z53.20 Procedure and treatment not carried out because of patient's decision for unspecified reasons; B37.0 Candidal stomatitis; Z95.5 Presence of coronary angioplasty implant and graft; Z91.19 Patient's noncompliance with other medical treatment and regimen; Z88.2 Allergy status to sulfonamides; Z79.899 Other long term (current) drug therapy; Z68.1 Body mass index [BMI] 19.9 or less, adult
CPT/HCPCS: 36415; 71045; 80048; 80053; 80061; 80305; 80320; 81003; 82962; 83036; 83605; 83880; 84484; 85025; 86359; 86360; 86850; 86900; 87426; 87635; 93005; 93306; 94640; 97162; 99285; J0456; J0696; J1610; J1815; J2543; J3370; J7060; G0480

== ENCOUNTER 2020-06-23 07:09 | Inpatient (IN) | payer MEDICAID, OTHER ==
[~2020-06-23] VITALS: Ht 175.3 cm; Wt 64.9 kg
[~2020-06-23 07:09] MED LIST changes: -ATOR-2 PO; +ATOV750O PO; +AZIT500T8 PO; +FLOR MT; -GABA-531 MT; -LOPHC5 PO; +MIDO5TAB4 PO; -PRAS10TA6 MT; -PRAS10TA6 PO
[2020-06-23] MEDS ORDERED: DEXTROSE 10% WATER 500 ML IV ONE (08:00)
[2020-06-23 08:46] LABS: BASOPHILS % 0.8 % (0.0-2.0); EOSINOPHILS % 2.6 % (0.0-5.0); HEMATOCRIT. 31.4 % (42.0-52.0); HEMOGLOBIN. 10.7 g/dL (14.0-18.0); LYMPHOCYTES % 7.4 % (20.0-50.0); MEAN CORPUSCULAR HEMOGLOBIN 34.4 pg (28.0-32.0); MEAN CORPUSCULAR VOLUME 101.4 fL (80.0-94.0); MEAN PLATELET VOLUME 7.8 fl (7.4-10.4); MONOCYTES % 10.4 % (2.0-8.0); NEUTROPHILS % 78.8 % (40.0-76.0); PLATELET 239 x1000/uL (130-400); RED CELL DISTRIBUTION WIDTH 18.3 % (11.6-14.6)
[2020-06-23 08:48] LABS: CHLORIDE 108 mEq/L (98-107)
[2020-06-23 08:51] LABS: INR 1.1; PROTHROMBIN TIME 11.4 sec (9.6-11.0)
[2020-06-23 08:55] LABS: ETHANOL BLOOD 113 mg/dL
[2020-06-23 10:49] LABS: CLARITY URINE CLEAR (CLEAR); COLOR URINE YELLOW (YELLOW); KETONES URINE TRACE (NEGATIVE); LEUKOCYTE ESTERASE URINE NEGATIVE (NEGATIVE); NITRITE URINE NEGATIVE (NEGATIVE); OCCULT BLOOD URINE NEGATIVE (NEGATIVE); PH URINE 5.5 (4.5-8.0); PROTEIN URINE NEGATIVE (NEGATIVE); SPECIFIC GRAVITY URINE 1.014 (1.005-1.030); UROBILINOGEN URINE 0.2 E.U./dL (0.2-1.0)
[2020-06-23 11:16] LABS: *AMPHETAMINES SCREEN URINE NEGATIVE (NEGATIVE); *BARBITURATES SCREEN URINE NEGATIVE (NEGATIVE)
[2020-06-23 11:17] LABS: *BENZODIAZEPINES SCREEN URINE NEGATIVE (NEGATIVE); *COCAINE SCREEN URINE NEGATIVE (NEGATIVE); CANNABINOID URINE SCREEN PRESUMTIVE POSITIVE (NEGATIVE); METHADONE URINE SCREEN NEGATIVE (NEGATIVE); OPIATES URINE SCREEN NEGATIVE (NEGATIVE); PHENCYCLIDINE URINE SCREEN NEGATIVE (NEGATIVE)
[2020-06-23] MEDS ORDERED: SODIUM CHLORIDE 0.9% 1,000 ML IV ONE (11:30)
[2020-06-23] MEDS ORDERED: POTASSIUM CHLORIDE 20MEQ TABLET SR PO ONE (11:30)
[2020-06-23] MEDS ORDERED: ONDANSETRON HCL 4MG/2ML INJ IV PRN (13:15)
[2020-06-23] MEDS ORDERED: ACETAMINOPHEN 325MG TABLET PO PRN (13:15)
[2020-06-23] MEDS ORDERED: AZITHROMYCIN 500 MG in DEXT 5% WATER 250 ML IV SCH (14:00)
[2020-06-23] MEDS ORDERED: CEFTRIAXONE 1 G PREMIX 50 ML IV SCH (14:00)
[2020-06-23 15:00] VITALS: BP 105/77
[2020-06-23] MEDS: AZITHROMYCIN 500 MG in DEXT 5% WATER 250 ML IV SCH (16:48)
[2020-06-23] MEDS: DEXT 5%/0.9% NACL 1,000 ML IV SCH (16:48)
[2020-06-23] MEDS: BLOOD SUGAR DIAGNOSTIC STRIP TEST SCH ×2 (17:24→21:20)
[2020-06-23] MEDS: CEFTRIAXONE 1,000 MG in DEXTROSE 5% WATER 50 ML IV SCH (17:24)
[2020-06-23 20:00] VITALS: BP 104/74
[2020-06-23] MEDS ORDERED: TRAZODONE HCL 50MG TABLET PO PRN (21:00)
[2020-06-23] MEDS: HEPARIN 5000 UNITS/ML VIAL SUBCUT SCH (21:26)
[2020-06-24] VITALS: BP 122/60
[2020-06-24] MEDS: NYSTATIN 100,000 UNITS/ML 5ML UDC SSW SCH ×4 (01:00→18:14)
[2020-06-24 04:00] VITALS: BP 116/75
[2020-06-24 07:00] LABS: BASOPHILS % 0.5 % (0.0-2.0); EOSINOPHILS % 2.9 % (0.0-5.0); HEMATOCRIT. 29.5 % (42.0-52.0); HEMOGLOBIN. 10.2 g/dL (14.0-18.0); MEAN CORPUSCULAR HEMOGLOBIN 34.9 pg (28.0-32.0); MEAN CORPUSCULAR VOLUME 100.8 fL (80.0-94.0); MEAN PLATELET VOLUME 8.2 fl (7.4-10.4); MONOCYTES % 8.4 % (2.0-8.0); NEUTROPHILS % 79.2 % (40.0-76.0); PLATELET 235 x1000/uL (130-400); RED BLOOD CELL COUNT 2.93 mill/uL (4.7-6.1); RED CELL DISTRIBUTION WIDTH 18.4 % (11.6-14.6)
[2020-06-24] MEDS: BLOOD SUGAR DIAGNOSTIC STRIP TEST SCH ×4 (07:20→21:37)
[2020-06-24 07:40] LABS: CHLORIDE 111 mEq/L (98-107)
[2020-06-24 08:00] VITALS: BP 104/71
[2020-06-24] MEDS ORDERED: POTASSIUM CHLORIDE 20MEQ TABLET SR PO SCH (09:00)
[2020-06-24] MEDS: ASPIRIN 81MG TABLET PO SCH (09:43)
[2020-06-24] MEDS: HEPARIN 5000 UNITS/ML VIAL SUBCUT SCH ×2 (09:44→21:37)
[2020-06-24] MEDS: ATOVAQUONE 750MG/5ML ORAL SYRINGE PO SCH ×3 (09:44→18:14)
[2020-06-24 12:00] VITALS: BP 111/81
[2020-06-24] MEDS: DEXT 5%/0.9% NACL 1,000 ML IV SCH (13:58)
[2020-06-24 16:00] VITALS: BP 116/72
[2020-06-24] MEDS: CEFTRIAXONE 1,000 MG in DEXTROSE 5% WATER 50 ML IV SCH (17:00)
[2020-06-24] MEDS: AZITHROMYCIN 500 MG in DEXT 5% WATER 250 ML IV SCH (17:20)
[2020-06-24 20:00] VITALS: BP 103/74
[2020-06-24] MEDS: DEXTROSE 50% WATER 50ML SYRINGE IV PRN (22:02)
[2020-06-25] VITALS: BP 111/76
[2020-06-25] MEDS: NYSTATIN 100,000 UNITS/ML 5ML UDC SSW SCH ×4 (00:17→18:00)
[2020-06-25] MEDS: DEXT 5%/0.9% NACL 1,000 ML IV SCH (02:51)
[2020-06-25 04:00] VITALS: BP 102/63
[2020-06-25] MEDS: DEXTROSE 50% WATER 50ML SYRINGE IV PRN (06:16)
[2020-06-25] MEDS: BLOOD SUGAR DIAGNOSTIC STRIP TEST SCH ×4 (06:16→21:08)
[2020-06-25 07:16] LABS: CHLORIDE 110 mEq/L (98-107)
[2020-06-25 07:17] LABS: BASOPHILS % 1.3 % (0.0-2.0); EOSINOPHILS % 4.7 % (0.0-5.0); HEMATOCRIT. 25.6 % (42.0-52.0); HEMOGLOBIN. 8.9 g/dL (14.0-18.0); LYMPHOCYTES % 15.5 % (20.0-50.0); MEAN CORPUSCULAR HEMOGLOBIN 34.7 pg (28.0-32.0); MEAN CORPUSCULAR VOLUME 100.1 fL (80.0-94.0); MEAN PLATELET VOLUME 8.6 fl (7.4-10.4); MONOCYTES % 7.9 % (2.0-8.0); NEUTROPHILS % 70.6 % (40.0-76.0); PLATELET 199 x1000/uL (130-400); RED BLOOD CELL COUNT 2.56 mill/uL (4.7-6.1); RED CELL DISTRIBUTION WIDTH 18.1 % (11.6-14.6)
[2020-06-25 07:40] VITALS: BP 110/72
[2020-06-25] MEDS: ASPIRIN 81MG TABLET PO SCH (08:30)
[2020-06-25] MEDS: HEPARIN 5000 UNITS/ML VIAL SUBCUT SCH ×2 (08:31→21:08)
[2020-06-25] MEDS: AZITHROMYCIN 500 MG TABLET PO SCH (08:31)
[2020-06-25] MEDS: ATOVAQUONE 750MG/5ML ORAL SYRINGE PO SCH ×2 (08:31→17:50)
[2020-06-25 09:08] LABS: ABSOLUTE EOSINOPHILS 0.1 x10E3/uL (0.0-0.4); ABSOLUTE LYMPHOCYTES 0.3 x10E3/uL (0.7-3.1); ABSOLUTE MONOCYTES 0.2 x10E3/uL (0.1-0.9); ABSOLUTE NEUTROPHILS 1.6 x10E3/uL (1.4-7.0); BASOPHILS 1 % (Not Estab.); HEMATOCRIT 26.9 % (37.5-51.0); HEMOGLOBIN 9.2 g/dL (13.0-17.7); IMMATURE GRANULOCYTES 0 % (Not Estab.); LYMPHOCYTES 13 % (Not Estab.); MEAN CORPUSCULAR HEMOGLOBIN 32.7 pg (26.6-33.0); MEAN CORPUSCULAR HGB CONC. 34.2 g/dL (31.5-35.7); MEAN CORPUSCULAR VOLUME 96 fL (79-97); MONOCYTES 8 % (Not Estab.); NEUTROPHILS 73 % (Not Estab.); PLATELETS 252 x10E3/uL (150-450); RBC 2.81 x10E6/uL (4.14-5.80); RED CELL DISTRIBUTION WIDTH 16.1 % (11.6-15.4); WBC 2.2 x10E3/uL (3.4-10.8)
[2020-06-25 11:17] VITALS: BP 102/73
[2020-06-25] MEDS ORDERED: POTASSIUM CHLORIDE 20MEQ TABLET SR PO NR (12:30)
[2020-06-25] MEDS ORDERED: MAGNESIUM 2 G PREMIX 50 ML IV SCH (14:00)
[2020-06-25 16:29] VITALS: BP 109/85
[2020-06-25] MEDS: CEFTRIAXONE 1,000 MG in DEXTROSE 5% WATER 50 ML IV SCH (16:51)
[2020-06-25 17:11] LABS: % CD 3 POS. LYMPHOCYTES 69.8 % (57.5-86.2); % CD 4 POS. LYMPHOCYTES 7.1 % (30.8-58.5); ABSOLUTE CD 3 209 /uL (622-2402); ABSOLUTE CD 4 HELPER 21 /uL (359-1519); ABSOLUTE CD 8 SUPPRESSOR 186 /uL (109-897); CD4/CD8 RATIO 0.11 (0.92-3.72)
[2020-06-25 20:00] VITALS: BP 105/80
[2020-06-26] VITALS: BP 109/73
[2020-06-26] MEDS: NYSTATIN 100,000 UNITS/ML 5ML UDC SSW SCH ×6 (00:21→23:11)
[2020-06-26 04:00] VITALS: BP 111/79
[2020-06-26] MEDS: DEXTROSE 50% WATER 50ML SYRINGE IV PRN (06:10)
[2020-06-26] MEDS: BLOOD SUGAR DIAGNOSTIC STRIP TEST SCH ×4 (06:10→21:55)
[2020-06-26 06:17] LABS: CHLORIDE 108 mEq/L (98-107)
[2020-06-26 06:27] LABS: BASOPHILS % 0.9 % (0.0-2.0); EOSINOPHILS % 4.5 % (0.0-5.0); HEMATOCRIT. 27.8 % (42.0-52.0); HEMOGLOBIN. 9.4 g/dL (14.0-18.0); LYMPHOCYTES % 11.5 % (20.0-50.0); MEAN CORPUSCULAR HEMOGLOBIN 34.1 pg (28.0-32.0); MEAN CORPUSCULAR VOLUME 100.3 fL (80.0-94.0); MEAN PLATELET VOLUME 8.7 fl (7.4-10.4); MONOCYTES % 8.1 % (2.0-8.0); PLATELET 217 x1000/uL (130-400); RED BLOOD CELL COUNT 2.77 mill/uL (4.7-6.1); RED CELL DISTRIBUTION WIDTH 18.7 % (11.6-14.6)
[2020-06-26 07:58] VITALS: BP 108/75
[2020-06-26] MEDS: AZITHROMYCIN 500 MG TABLET PO SCH (08:36)
[2020-06-26] MEDS: ASPIRIN 81MG TABLET PO SCH (08:36)
[2020-06-26] MEDS: HEPARIN 5000 UNITS/ML VIAL SUBCUT SCH ×2 (08:36→21:56)
[2020-06-26 11:15] VITALS: BP 98/72
[2020-06-26] MEDS: ATOVAQUONE 750MG/5ML ORAL SYRINGE PO SCH ×2 (11:23→18:13)
[2020-06-26 15:24] VITALS: BP 105/68
[2020-06-26] MEDS: CEFTRIAXONE 1,000 MG in DEXTROSE 5% WATER 50 ML IV SCH (16:56)
[2020-06-26 20:49] VITALS: BP 102/70
[2020-06-27] VITALS: BP 110/74
[2020-06-27 04:00] VITALS: BP 99/70
[2020-06-27] MEDS: NYSTATIN 100,000 UNITS/ML 5ML UDC SSW SCH ×3 (07:24→18:00)
[2020-06-27] MEDS: BLOOD SUGAR DIAGNOSTIC STRIP TEST SCH ×4 (07:24→21:13)
[2020-06-27] MEDS: ATOVAQUONE 750MG/5ML ORAL SYRINGE PO SCH ×2 (07:50→17:50)
[2020-06-27 08:00] VITALS: BP 95/69
[2020-06-27] MEDS: ASPIRIN 81MG TABLET PO SCH (09:00)
[2020-06-27] MEDS: AZITHROMYCIN 500 MG TABLET PO SCH (09:00)
[2020-06-27] MEDS: HEPARIN 5000 UNITS/ML VIAL SUBCUT SCH ×2 (09:00→21:12)
[2020-06-27] MEDS: DEXT 5%/0.9% NACL 1,000 ML IV SCH (12:30)
[2020-06-27 16:00] VITALS: BP 94/69
[2020-06-27] MEDS: CEFTRIAXONE 1,000 MG in DEXTROSE 5% WATER 50 ML IV SCH (17:00)
[2020-06-27 20:24] VITALS: BP 99/70
[2020-06-27 21:05] LABS: BASOPHILS % 0.5 % (0.0-2.0); EOSINOPHILS % 1.8 % (0.0-5.0); HEMATOCRIT. 27.4 % (42.0-52.0); HEMOGLOBIN. 9.5 g/dL (14.0-18.0); LYMPHOCYTES % 7.3 % (20.0-50.0); MEAN CORPUSCULAR HEMOGLOBIN 34.8 pg (28.0-32.0); MEAN CORPUSCULAR VOLUME 100.8 fL (80.0-94.0); MEAN PLATELET VOLUME 8.8 fl (7.4-10.4); MONOCYTES % 8.5 % (2.0-8.0); NEUTROPHILS % 81.9 % (40.0-76.0); PLATELET 220 x1000/uL (130-400); RED BLOOD CELL COUNT 2.72 mill/uL (4.7-6.1); RED CELL DISTRIBUTION WIDTH 18.6 % (11.6-14.6)
[2020-06-27 21:11] LABS: CHLORIDE 103 mEq/L (98-107)
[2020-06-28 00:03] VITALS: BP 99/67
[2020-06-28] MEDS: DEXT 5%/0.9% NACL 1,000 ML IV SCH (00:14)
[2020-06-28] MEDS: NYSTATIN 100,000 UNITS/ML 5ML UDC SSW SCH ×2 (00:14→06:14)
[2020-06-28 04:00] VITALS: BP 98/64
[2020-06-28] MEDS: BLOOD SUGAR DIAGNOSTIC STRIP TEST SCH (06:15)
[2020-06-28 08:00] VITALS: BP 101/68
[2020-06-28] MEDS: ASPIRIN 81MG TABLET PO SCH (09:00)
[2020-06-28] MEDS: HEPARIN 5000 UNITS/ML VIAL SUBCUT SCH (09:00)
[2020-06-28] MEDS: ATOVAQUONE 750MG/5ML ORAL SYRINGE PO SCH (09:21)
== END 2020-06-28 10:55 | disposition left against medical advice (07) | DRG 893 ==
LOC: ER 07:09 → 6EST 13:03 → EDBEDREQTM 13:06 → EDBEDREQ 13:06 → ENRESERV 13:30 → 6WST 18:45
PROVIDERS: ADMIT Internal Medicine; ATTEND Internal Medicine
DX: J18.9 Pneumonia, unspecified organism (principal); D64.9 Anemia, unspecified; B20 Human immunodeficiency virus [HIV] disease; E87.6 Hypokalemia; E43 Unspecified severe protein-calorie malnutrition; F12.10 Cannabis abuse, uncomplicated; J44.9 Chronic obstructive pulmonary disease, unspecified; E16.2 Hypoglycemia, unspecified; D72.819 Decreased white blood cell count, unspecified; I25.10 Atherosclerotic heart disease of native coronary artery without angina pectoris; I42.9 Cardiomyopathy, unspecified; F17.200 Nicotine dependence, unspecified, uncomplicated; F10.10 Alcohol abuse, uncomplicated; I27.21 Secondary pulmonary arterial hypertension; R74.01 Elevation of levels of liver transaminase levels; G62.9 Polyneuropathy, unspecified; E83.42 Hypomagnesemia; I49.3 Ventricular premature depolarization; B37.0 Candidal stomatitis; Z53.29 Procedure and treatment not carried out because of patient's decision for other reasons; Z88.8 Allergy status to other drugs, medicaments and biological substances; Z91.013 Allergy to seafood; Z79.899 Other long term (current) drug therapy; Z82.49 Family history of ischemic heart disease and other diseases of the circulatory system; Z71.6 Tobacco abuse counseling; Z91.14 Patient's other noncompliance with medication regimen; Z68.21 Body mass index [BMI] 21.0-21.9, adult; Z95.5 Presence of coronary angioplasty implant and graft; Z91.19 Patient's noncompliance with other medical treatment and regimen; Z59.0 Homelessness
CPT/HCPCS: 36415; 71045; 80053; 80061; 80305; 80320; 81003; 82962; 83036; 83735; 84145; 84484; 85025; 86359; 86360; 93005; 99285; J0456; J0696; J1644; J3475; J7030; J7042; J7060; G0480